=== PATIENT | male | born 1975 | race Caucasian/White ===

== ENCOUNTER 2018-12-24 01:05 | Emergency (ER) | payer OTHER ==
[~2018-12-24] VITALS: Ht 182.9 cm; Wt 108.9 kg
[2018-12-24] MEDS ORDERED: METFORMIN (01:31)
[2018-12-24] MEDS ORDERED: GLIPIZIDE (01:31)
[2018-12-24 03:45] LABS: BASOPHILS ABSOLUTE AUTO 0.01 K/mm3 (0.00-0.23); BASOPHILS PERCENT AUTO 0 % (0-2); EOSINOPHILS PERCENT AUTO 0 % (0-6); Hematocrit 44.6 % (37.0-53.0); Hemoglobin 14.6 g/dL (13.5-17.5); IMMATURE GRAN ABSOLUTE AUTO 0.04 K/mm3 (0.00-0.10); IMMATURE GRAN PERCENT AUTO 0 % (0-1); LYMPHOCYTES ABSOLUTE AUTO 1.03 K/mm3 (0.84-5.20); LYMPHOCYTES PERCENT AUTO 10 % (21-46); MONOCYTES ABSOLUTE AUTO 0.49 K/mm3 (0.16-1.47); MONOCYTES PERCENT AUTO 5 % (4-13); Mean Corpuscular HGB 29.2 pg (26.0-34.0); Mean Corpuscular HGB Conc 32.7 g/dL (31.5-36.5); Mean Corpuscular Volume 89 fL (80-100); Mean Platelet Volume 9.9 fL (9.1-12.4); NEUTROPHILS ABSOLUTE AUTO 8.75 K/mm3 (1.96-9.15); NEUTROPHILS PERCENT AUTO 85 % (41-73); Platelet Count 210 K/mm3 (150-400); RDW Coefficient Variation 13.5 % (11.7-14.2); RDW Standard Deviation 44.3 fL (35.1-46.3); White Blood Cell Count 10.32 K/mm3 (4.00-11.30)
[2018-12-24 03:50] LABS: Source, Urine Clean Catch
[2018-12-24 03:55] LABS: Bilirubin, Urine Neg (Neg); Blood, Urine 5+ (Neg); Glucose Qualitative, Urine Neg (Neg); Ketones, Urine 2+ (Neg); Leukocyte Esterase, Urine Neg (Neg); Nitrite, Urine Neg (Neg); Protein, Urine 2+ (Neg); Urobilinogen, Urine NORM (Normal)
[2018-12-24 04:01] LABS: Appearance, Urine Hazy (Clear); Color, Urine Amber (P-Yellow); Red Blood Cells, Urine TNTC /hpf (0-2); White Blood Cells, Urine Not Seen /hpf (0-5)
[2018-12-24 04:02] LABS: Amorphous Light (0-Heavy); Bacteria Rare /hpf; Calcium Oxalate Crystals Mod /hpf; Squamous Epithelial Cells Not Seen /hpf (Few)
[2018-12-24 04:03] LABS: Alanine Aminotransfer (ALT/SGP 41 U/L (12-78); Albumin/Globulin Ratio 1.1 (0.8-1.8); Alk Phos 60 U/L (50-136); Anion Gap 9 mmol/L (6-16); Aspartate Aminotrans (AST/SGOT 22 U/L (12-37); Bilirubin, Total 0.7 mg/dL (0.1-1.0); Blood Urea Nitrogen 22 mg/dL (8-24); CO2, Blood 28 mmol/L (21-32); Calcium, Blood 9.3 mg/dL (8.5-10.1); Chloride, Blood 102 mmol/L (98-108); Globulin, Blood 3.6 g/dL (2.2-4.0); Glomerular Filtration Rate >60 (60-); Glucose, Blood 139 mg/dL (70-99); Magnesium, Blood 1.9 mg/dL (1.6-2.4); Sodium, Blood 139 mmol/L (136-145); Total Protein, Blood 7.6 g/dL (6.4-8.2)
[2018-12-24] MEDS ORDERED: Flomax0.4 MG PO (04:42)
[2018-12-24] MEDS ORDERED: Zofran4 MG PO (04:42)
[2018-12-24] MEDS ORDERED: Percocet 5-3251 EACH PO (04:42)
== END 2018-12-24 05:50 | disposition home or self-care (01) ==
LOC: ER 01:05
PROVIDERS: Emergency Medicine
DX: N13.2 Hydronephrosis with renal and ureteral calculous obstruction (principal); Z79.899 Other long term (current) drug therapy; Z79.84 Long term (current) use of oral hypoglycemic drugs; E11.9 Type 2 diabetes mellitus without complications
CPT/HCPCS: 36415; 74176; 80053; 81001; 83690; 83735; 85025; 96361; 96374; 96375; 99284-25; J1170; J1885; J2405; J7030

== ENCOUNTER → 2020-03-23 | Outpatient (CLI) | payer OTHER ==
[~2020-03-23] MED LIST: Flomax0.4 MG PO; GLIPIZIDE; METFORMIN; Percocet 5-3251 EACH PO; Zofran4 MG PO
== END | disposition home or self-care (01) ==
LOC: LAB SHORT 16:07 → LAB SRC 16:07
DX: R31.0 Gross hematuria (principal)
CPT/HCPCS: 88108

== ENCOUNTER 2023-08-20 11:06 | Emergency (ER) | payer OTHER ==
[~2023-08-20] VITALS: Ht 182.9 cm; Wt 93.0 kg
[2023-08-20 11:37] VITALS: BP 130/81
[2023-08-20 12:05] LABS: BASOPHILS ABSOLUTE AUTO 0.04 K/mm3 (0.00-0.23); BASOPHILS PERCENT AUTO 0 % (0-2); EOSINOPHILS ABSOLUTE AUTO 0.49 K/mm3 (0.00-0.68); EOSINOPHILS PERCENT AUTO 4 % (0-6); Hematocrit 41.3 % (37.0-53.0); Hemoglobin 13.7 g/dL (13.5-17.5); IMMATURE GRAN ABSOLUTE AUTO 0.04 K/mm3 (0.00-0.10); IMMATURE GRAN PERCENT AUTO 0 % (0-1); LYMPHOCYTES ABSOLUTE AUTO 1.83 K/mm3 (0.84-5.20); LYMPHOCYTES PERCENT AUTO 16 % (21-46); MONOCYTES ABSOLUTE AUTO 0.81 K/mm3 (0.16-1.47); MONOCYTES PERCENT AUTO 7 % (4-13); Mean Corpuscular HGB Conc 33.2 g/dL (31.5-36.5); Mean Corpuscular Volume 88 fL (80-100); Mean Platelet Volume 10.9 fL (9.1-12.4); NEUTROPHILS ABSOLUTE AUTO 8.07 K/mm3 (1.96-9.15); NEUTROPHILS PERCENT AUTO 72 % (41-73); Platelet Count 224 K/mm3 (150-400); RDW Coefficient Variation 14.5 % (11.7-14.2); RDW Standard Deviation 46.6 fL (35.1-46.3); Red Blood Cell Count 4.72 M/mm3 (4.30-5.90); White Blood Cell Count 11.28 K/mm3 (4.00-11.30)
[2023-08-20 12:55] LABS: Albumin, Blood 3.4 g/dL (3.4-5.0); Albumin/Globulin Ratio 0.8 (0.8-1.8); Bun/Creatinine Ratio 19.7 (12.0-20.0); Calcium, Blood 9.4 mg/dL (8.5-10.1); Creatinine, Blood 0.61 mg/dL (0.60-1.20); Globulin, Blood 4.4 g/dL (2.2-4.0); Potassium, Blood 4.1 mmol/L (3.5-5.5); Total Protein, Blood 7.8 g/dL (6.4-8.2)
[2023-08-20] MEDS ORDERED: OXYC5 PO (15:04)
== END 2023-08-20 15:22 | disposition home or self-care (01) ==
LOC: ER 11:06
PROVIDERS: Physician Assistant
DX: K85.90 Acute pancreatitis without necrosis or infection, unspecified (principal); Z96.89 Presence of other specified functional implants
CPT/HCPCS: 74177; 80053; 83690; 85025; 99284-25; Q9967

== ENCOUNTER 2023-08-22 14:09 | Emergency (ER) | payer OTHER ==
[~2023-08-22] VITALS: Ht 182.9 cm; Wt 93.0 kg
[~2023-08-22 14:09] MED LIST changes: +OXYC5 PO
[2023-08-22 14:35] LABS: BASOPHILS ABSOLUTE AUTO 0.05 K/mm3 (0.00-0.23); BASOPHILS PERCENT AUTO 1 % (0-2); EOSINOPHILS ABSOLUTE AUTO 0.31 K/mm3 (0.00-0.68); EOSINOPHILS PERCENT AUTO 4 % (0-6); Hematocrit 43.9 % (37.0-53.0); Hemoglobin 14.4 g/dL (13.5-17.5); IMMATURE GRAN ABSOLUTE AUTO 0.02 K/mm3 (0.00-0.10); IMMATURE GRAN PERCENT AUTO 0 % (0-1); LYMPHOCYTES PERCENT AUTO 21 % (21-46); MONOCYTES ABSOLUTE AUTO 0.64 K/mm3 (0.16-1.47); MONOCYTES PERCENT AUTO 8 % (4-13); Mean Corpuscular HGB 28.5 pg (26.0-34.0); Mean Corpuscular HGB Conc 32.8 g/dL (31.5-36.5); Mean Corpuscular Volume 87 fL (80-100); Mean Platelet Volume 10.4 fL (9.1-12.4); NEUTROPHILS ABSOLUTE AUTO 5.06 K/mm3 (1.96-9.15); NEUTROPHILS PERCENT AUTO 66 % (41-73); Platelet Count 242 K/mm3 (150-400); RDW Coefficient Variation 14.6 % (11.7-14.2); RDW Standard Deviation 46.5 fL (35.1-46.3); Red Blood Cell Count 5.06 M/mm3 (4.30-5.90); White Blood Cell Count 7.68 K/mm3 (4.00-11.30)
[2023-08-22 14:54] LABS: Albumin, Blood 3.5 g/dL (3.4-5.0); Albumin/Globulin Ratio 0.8 (0.8-1.8); Bilirubin, Total 1.4 mg/dL (0.1-1.0); Bun/Creatinine Ratio 14.6 (12.0-20.0); Calcium, Blood 9.7 mg/dL (8.5-10.1); Creatinine, Blood 0.82 mg/dL (0.60-1.20); Globulin, Blood 4.6 g/dL (2.2-4.0); Potassium, Blood 3.8 mmol/L (3.5-5.5); Total Protein, Blood 8.1 g/dL (6.4-8.2)
[2023-08-22 18:30] VITALS: BP 136/91
[2023-08-22] MEDS ORDERED: HYDMOR2 PO ×2 (19:03→19:06)
== END 2023-08-22 19:13 | disposition home or self-care (01) ==
LOC: ER 14:09
PROVIDERS: Physician Assistant
DX: R10.13 Epigastric pain (principal); Z96.89 Presence of other specified functional implants; E11.9 Type 2 diabetes mellitus without complications; Z79.899 Other long term (current) drug therapy
CPT/HCPCS: 80053; 83690; 85025; 96374; 99284-25; A9270; J1170

== ENCOUNTER 2024-04-05 06:15 | Day surgery (SDC) | payer OTHER ==
[~2024-04-05] VITALS: Ht 182.9 cm; Wt 100.8 kg
[~2024-04-05 06:15] MED LIST changes: +HYDMOR2 PO; +Lactated Ringer's 1,000 ML IV ONE; +Lidocaine 1%-Epineph 1:100000 20 ML MDV ONE
[2024-04-05] MEDS ORDERED: EZETIMIBE10 M6 PO (06:40)
[2024-04-05] MEDS ORDERED: LIPITOR80 MG PO (06:40)
[2024-04-05] MEDS ORDERED: METF500 PO (06:41)
[2024-04-05] MEDS ORDERED: ACTOS30 MG PO (06:41)
[2024-04-05] MEDS ORDERED: GLIP5 PO (06:41)
[2024-04-05] MEDS ORDERED: OMEP20ER PO (06:41)
[2024-04-05] MEDS ORDERED: ALEVE ARTHRITI100 GM (06:42)
[2024-04-05] MEDS ORDERED: Lactated Ringer's 1,000 ML IV ONE (06:53)
[2024-04-05] MEDS ORDERED: EPINEPhrine HCl 1 MG / ML 30ML Vial ONE (06:54)
[2024-04-05] MEDS ORDERED: Bupivacaine 0.5% HCl 5 MG/ML 30MLVIAL ONE (06:55)
[2024-04-05] MEDS ORDERED: NAPR500 PO (06:59)
[2024-04-05] MEDS ORDERED: Midazolam HCl 1MG / ML 2ML Vial ONE (07:00)
[2024-04-05] MEDS ORDERED: FISH OIL 1,0001 EA10 PO (07:00)
[2024-04-05] MEDS ORDERED: FentaNYL Citrate 50 MCG/ML 2 ML Injection ONE (07:00)
[2024-04-05] MEDS ORDERED: CeFAZolin Sodium 2,000 MG VIAL ONE (07:12)
[2024-04-05] MEDS ORDERED: NS 50 ML IV ONE (07:12)
--- NOTE | 2024-04-05 07:27 | NUR ---
04/05/24 0727 Jacqueline Schofield TIME OUT DONE AT BEDSIDE WITH DR CARRASCO AT 0717 PRIOR TO INJECTION OF 10ML 1% LIDOCAINE WITH EPI [id number]. INJECTION STARTED AT 0720 AND ENDED AT 07. PT TOLERATED PROCEDURE WELL.
[2024-04-05 08:02] VITALS: BP 129/72
--- NOTE | 2024-04-05 08:21 | NUR ---
04/05/24 0821 Mimi Maciel PT DENIES PAIN AND NAUSEA. PT DOING WELL, UP IN RECLINER. PT ABLE TO TOLERATE FLUIDS. PT COOPERATIVE AND CALM, PLEASANT.
== END 2024-04-05 08:31 | disposition home or self-care (01) ==
LOC: ORSCSDS 06:15
PROVIDERS: Orthopaedic Surgery
PROC: 01N50ZZ Release Median Nerve, Open Approach (ICD-10-PCS; principal; 2024-04-05 07:30)
DX: G56.03 Carpal tunnel syndrome, bilateral upper limbs (principal); E11.9 Type 2 diabetes mellitus without complications; K21.9 Gastro-esophageal reflux disease without esophagitis; F32.A Depression, unspecified; Z79.84 Long term (current) use of oral hypoglycemic drugs; Z79.899 Other long term (current) drug therapy; Z79.4 Long term (current) use of insulin; Z87.891 Personal history of nicotine dependence
CPT/HCPCS: 82947; J0171; J0690; J2250; J3010; J7120

== ENCOUNTER 2025-06-16 20:00 | Emergency (ER) | payer OTHER ==
[~2025-06-16] VITALS: Ht 182.9 cm; Wt 108.9 kg
[~2025-06-16 20:00] MED LIST changes: +ACTOS30 MG PO; +ALEVE ARTHRITI100 GM; +EZETIMIBE10 M6 PO; +FISH OIL 1,0001 EA10 PO; +GLIP5 PO; +LIPITOR80 MG PO; -Lactated Ringer's 1,000 ML IV ONE; -Lidocaine 1%-Epineph 1:100000 20 ML MDV ONE; +METF500 PO; +NAPR500 PO; +OMEP20ER PO
[2025-06-16] MEDS ORDERED: NS 1,000 ML IV SCH (20:15)
[2025-06-16 20:37] LABS: BASOPHILS ABSOLUTE AUTO 0.04 K/mm3 (0.00-0.23); BASOPHILS PERCENT AUTO 0 % (0-2); EOSINOPHILS ABSOLUTE AUTO 0.07 K/mm3 (0.00-0.68); EOSINOPHILS PERCENT AUTO 1 % (0-6); Hematocrit 38.6 % (37.0-53.0); Hemoglobin 12.6 g/dL (13.5-17.5); IMMATURE GRAN ABSOLUTE AUTO 0.05 K/mm3 (0.00-0.10); IMMATURE GRAN PERCENT AUTO 0 % (0-1); LYMPHOCYTES ABSOLUTE AUTO 1.61 K/mm3 (0.84-5.20); LYMPHOCYTES PERCENT AUTO 14 % (21-46); MONOCYTES ABSOLUTE AUTO 0.88 K/mm3 (0.16-1.47); MONOCYTES PERCENT AUTO 8 % (4-13); Mean Corpuscular HGB Conc 32.6 g/dL (31.5-36.5); Mean Corpuscular Volume 83 fL (80-100); NEUTROPHILS ABSOLUTE AUTO 9.16 K/mm3 (1.96-9.15); NEUTROPHILS PERCENT AUTO 78 % (41-73); NRBC ABSOLUTE 0.00 K/mm3 (0.00-0.02); NRBC Auto 0.0 /100 WBC (0.0-0.2); RDW Coefficient Variation 15.6 % (11.7-14.2); RDW Standard Deviation 47.1 fL (35.1-46.3)
[2025-06-16] MEDS ORDERED: Morphine Sulfate 4 MG/1 ML Injection IV ONE (20:40)
[2025-06-16 20:49] LABS: Alanine Aminotransfer (ALT/SGP 245.0 U/L (12-78); Albumin, Blood 3.8 g/dL (3.4-5.0); Albumin/Globulin Ratio 1.0 (0.8-1.8); Anion Gap 11.0 mmol/L (3-11); Aspartate Aminotrans (AST/SGOT 204.0 U/L (12-37); Bilirubin, Total 0.4 mg/dL (0.1-1.0); Blood Urea Nitrogen 13.0 mg/dL (8-24); CO2, Blood 25.0 mmol/L (21-32); Calcium, Blood 9.1 mg/dL (8.5-10.1); Chloride, Blood 103.0 mmol/L (98-108); Creatinine, Blood 0.93 mg/dL (0.60-1.20); Globulin, Blood 3.8 g/dL (2.2-4.0); Glucose, Blood 154.0 mg/dL (70-99); Potassium, Blood 4.0 mmol/L (3.5-5.5); Sodium, Blood 135.0 mmol/L (136-145); Total Protein, Blood 7.6 g/dL (6.4-8.2)
[2025-06-16 20:53] LABS: Platelet Count 163 K/mm3 (150-400)
[2025-06-16] MEDS ORDERED: Diazepam 5 MG / ML 2ML SYR IV ONE (21:25)
[2025-06-16] MEDS ORDERED: HYDROmorphone HCl/Pf 1MG SYR IV ONE (21:50)
[2025-06-16 22:09] LABS: Source, Urine Clean Catch
[2025-06-16 22:12] LABS: Bilirubin, Urine Neg (Neg); Glucose Qualitative, Urine Neg (Neg); Ketones, Urine Neg (Neg); Leukocyte Esterase, Urine Neg (Neg); Protein, Urine Neg (Neg); Specific Gravity, Urine 1.015 (1.003-1.022); Urobilinogen, Urine NORM (Normal)
[2025-06-16 22:13] LABS: Color, Urine Yellow (P-Yellow)
[2025-06-16] MEDS ORDERED: DICY20 PO (23:06)
[2025-06-16 23:15] VITALS: BP 150/81
== END 2025-06-16 23:15 | disposition home or self-care (01) ==
LOC: ER 20:00
PROVIDERS: Student in an Organized Health Care Education/Training Program
DX: K82.8 Other specified diseases of gallbladder (principal); R10.13 Epigastric pain; Z79.84 Long term (current) use of oral hypoglycemic drugs; Z79.899 Other long term (current) drug therapy; E11.9 Type 2 diabetes mellitus without complications
CPT/HCPCS: 74177; 76705; 80053; 81003; 83690; 85025; 93005; 93010; 96374-59; 96375; 99284-25; J1171; J2270; J3360; J7030; Q9967